=== PATIENT | male | born 1975 | race Caucasian/White ===

== ENCOUNTER 2019-01-29 07:11 | Emergency (ER) | payer OTHER ==
[2019-01-29 07:25] VITALS: BP 147/92; PULSE 80; RESP 18; TEMP 98.3
[2019-01-29] MEDS ORDERED: DIPH,PERTUS(ACELL)TETVAC-LF 0.5 ML VIAL IM ONE (07:41)
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
== END 2019-01-29 08:00 | disposition home or self-care (01) ==
LOC: EC 07:11
DX: K13.0 Diseases of lips (principal); Z23 Encounter for immunization; Y09 Assault by unspecified means; Y92.129 Unspecified place in nursing home as the place of occurrence of the external cause; Y99.0 Civilian activity done for income or pay
CPT/HCPCS: 90471; 90715; 99283

== ENCOUNTER → 2021-08-27 | Outpatient (CLI) | payer BC ==
--- NOTE | 2021-08-27 15:18 | XR ---
EXAMINATION TYPE: XR shoulder complete LT DATE OF EXAM: 08/27/2021 CLINICAL HISTORY: pain COMPARISON: NONE TECHNIQUE: Three views of the left shoulder are obtained. FINDINGS: There is no acute fracture/dislocation evident. The acromioclavicular and glenohumeral stephen int spaces appear within normal limits. The visualized ribs are intact and unremarkable. IMPRESSION: 1. There is no acute fracture or dislocation. ICD 10 NO FRACTURE, INITIAL EVALUATION
== END | disposition home or self-care (01) ==
LOC: RADXRYALE 14:25
PROVIDERS: ATTEND Physician Assistant
DX: M25.512 Pain in left shoulder (principal)

== ENCOUNTER 2021-12-22 20:37 | Emergency (ER) | payer MEDICAID, OTHER ==
[2021-12-22 20:45] VITALS: BP 177/104; PULSE 87; RESP 18; TEMP 99.2
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
--- NOTE | 2021-12-22 23:47 | XR ---
EXAMINATION TYPE: XR foot complete LT DATE OF EXAM: 12/22/2021 COMPARISON: NONE HISTORY: Possible foreign body. Pain. TECHNIQUE: 3 views FINDINGS: Metatarsals are intact. I see no fracture nor dislocation. There is no evidence of radiopaq ue foreign body. IMPRESSION: Negative exam. Small piece of wood is probably not visible on plain x-ray. Ultrasound parag ht be helpful.
--- NOTE | 2021-12-23 00:37 | US ---
EXAMINATION TYPE: US extremity nonvasc mass LT DATE OF EXAM: 12/23/2021 COMPARISON: NONE CLINICAL HISTORY: Foreign body left foot. Patient states he stepped on a piece of wood; patient is ex periencing pain at area. Area of concern at the left plantar surface was assessed. There appears to be a break in the skin-maximilian e surface at area of concern. No vascularity noted at area. IMPRESSION: There is hypoechoic area in the area of concern that could be area of small hematoma torrey uring 4 mm. No sharply marginated finding to suggest a wooden sliver.
[2021-12-23] MEDS ORDERED: CEPHALEXIN 500 MG CAP PO STA (00:43)
== END 2021-12-23 01:34 | disposition home or self-care (01) ==
LOC: EC 20:37
DX: S91.342A Puncture wound with foreign body, left foot, initial encounter (principal); E11.9 Type 2 diabetes mellitus without complications; I10 Essential (primary) hypertension; W22.8XXA Striking against or struck by other objects, initial encounter
CPT/HCPCS: 99284

== ENCOUNTER 2022-04-22 20:47 | Emergency (ER) | payer OTHER ==
[2022-04-22 21:04] VITALS: TEMP 98.1
[2022-04-22] MEDS ORDERED: DEXAMETHASONE SOD PHOSPHATE 10 MG/ML 1 ML VIAL IV STA (21:44)
[2022-04-22] MEDS ORDERED: SODIUM CHLORIDE 0.9% 1,000 ML IV STA (21:44)
[2022-04-22] MEDS ORDERED: METOCLOPRAMIDE 5 MG/ML 2 ML VIAL IVP STA (21:44)
[2022-04-22] MEDS ORDERED: diphenhydrAMINE 50 MG/ML 1 ML VIAL IVP STA (21:44)
[2022-04-22] MEDS ORDERED: KETOROLAC 15 MG/ML 1 ML VIAL IVP STA (21:44)
[2022-04-22 22:13] LABS: Basophils % (A) 0 %; Eosinophils # (A) 0.1 k/uL (0-0.7); Eosinophils % (A) 1 %; HCT 45.2 % (39.0-53.0); HGB 15.1 gm/dL (13.0-17.5); Lymphocytes # (A) 2.6 k/uL (1.0-4.8); Lymphocytes % (A) 35 %; MCH 28.6 pg (25.0-35.0); MCHC 33.4 g/dL (31.0-37.0); MCV 85.8 fL (80.0-100.0); Mean Platelet Volume 6.4; Monocytes # (A) 0.3 k/uL (0-1.0); Monocytes % (A) 4 %; Neutrophils # (A) 4.3 k/uL (1.3-7.7); Neutrophils % (A) 58 %; Platelet Count 268 k/uL (150-450); RBC 5.26 m/uL (4.30-5.90); RDW 13.1 % (11.5-15.5); WBC 7.4 k/uL (3.8-10.6)
[2022-04-22 22:22] LABS: ALT 26 U/L (4-49); AST 28 U/L (17-59); African American GFR (CKD) >90 (>60 ml/min/1.73 sqM); Albumin 4.3 g/dL (3.5-5.0); Alkaline Phosphatase 68 U/L (38-126); Anion Gap 5 mmol/L; Blood Urea Nitrogen 18 mg/dL (9-20); Calcium 9.6 mg/dL (8.4-10.2); Carbon Dioxide 28 mmol/L (22-30); Chloride 106 mmol/L (98-107); Glucose 159 mg/dL (74-99); Non-African American GFR(CKD) >90 (>60 ml/min/1.73 sqM); Potassium 4.1 mmol/L (3.5-5.1); Sodium 139 mmol/L (137-145); Total Bilirubin 0.4 mg/dL (0.2-1.3)
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
--- NOTE | 2022-04-22 22:45 | CT ---
EXAMINATION TYPE: CT brain wo con DATE OF EXAM: 04/22/2022 COMPARISON: None HISTORY: Headache and dizziness CT DLP: 1303.4 mGycm Automated exposure control for dose reduction was used. Images obtained of the brain with no contrast. Ventricles of normal size. There is no mass effect or midline shift. No sign of intracranial hemorrha ge. Calvarium is intact. Normal aeration of the mastoid sinuses. Skull base is intact. IMPRESSION: Negative unenhanced head CT scan
--- NOTE | 2022-04-22 23:12 | XR ---
EXAMINATION TYPE: XR chest 2V DATE OF EXAM: 04/22/2022 COMPARISON: NONE HISTORY: Short of breath TECHNIQUE: 2 views FINDINGS: Heart and mediastinum are normal. Lungs are clear. Diaphragm is normal. Bony thorax appears normal. IMPRESSION: Normal chest.
[2022-04-22] MEDS ORDERED: ONDANSETRON 4 MG ODT STARTER PACK 2 TAB BTL PO STA (23:33)
[2022-04-22 23:48] VITALS: BP 151/97; PULSE 82; RESP 14
== END 2022-04-22 23:50 | disposition home or self-care (01) ==
LOC: EC 20:47
DX: G43.909 Migraine, unspecified, not intractable, without status migrainosus (principal); R42 Dizziness and giddiness; E11.9 Type 2 diabetes mellitus without complications; I10 Essential (primary) hypertension; Z79.899 Other long term (current) drug therapy; Z20.822 Contact with and (suspected) exposure to COVID-19
CPT/HCPCS: 36415; 80053; 85025; 87502; 87635; 71046; 70450; 99284; 96374; 96375 ×3; 96361; J1200; J1100; J2765; J1885; S0119

== ENCOUNTER 2023-12-30 11:38 | Emergency (ER) | payer BC, OTHER ==
[2023-12-30 12:13] VITALS: RESP 18; TEMP 97.8
[2023-12-30] MEDS: AMOXIC-POT CLAV 875-125MG 1 EACH TAB PO STA (12:17)
[2023-12-30] MEDS: LIDOCAINE 1% INJ 10MG/ML (20 ML MDV) SQ ONE (12:17)
[2023-12-30] MEDS: KETOROLAC 15 MG/ML 1 ML VIAL IM STA (12:20)
--- NOTE | 2023-12-30 12:23 | ED ---
Animal Bite HPI - General Chief Complaint: Animal Bite Stated Complaint: Animal Bite Time Seen by Provider: 12/30/23 11:55 Source: patient, RN notes reviewed Mode of arrival: ambulatory Limitations: no limitations - History of Present Illness Initial Comments: This is a 48-year-old male who presents to the emergency department for a dog bite. Patient states that he was trying to break up a fight between his dogs, when his dog bit his left index finger. His dog is a Corgi. The dog's vaccines are up-to-date and the patient is up-to-date on his tetanus vaccine. He initially went to urgent care, but was advised to come to the emergency department for further evaluation. MD Complaint: animal bite - Related Data Home Medications Medication Instructions Recorded Confirmed Atorvastatin [Lipitor] 40 mg PO DAILY 04/22/22 04/22/22 Losartan [Cozaar] 25 mg PO DAILY 04/22/22 04/22/22 Semaglutide [Ozempic] 1 mg SQ MO 04/22/22 04/22/22 metFORMIN HCL [Glucophage] 1,000 mg PO BID 04/22/22 04/22/22 Previous Rx's Medication Instructions Recorded Ondansetron Odt [Zofran Odt] 4 mg PO Q8HR PRN #20 tab 04/22/22 SUMAtriptan succinate [Imitrex] 50 mg PO ONCE #20 tablet 04/22/22 Amoxic-Pot Clav 875-125Mg 1 tab PO Q12HR 7 Days #14 tab 12/30/23 [Augmentin 875-125] HYDROcodone/APAP 5-325MG [[place] 1 tab PO Q6HR PRN 3 Days #12 tab 12/30/23 5-325] Ibuprofen [Motrin] 800 mg PO Q8H PRN #30 tab 12/30/23 Allergies Allergy/AdvReac Type Severity Reaction Status Date / Time No Known Allergies Allergy Verified 12/30/23 11:49 Review of Systems ROS Statement: Those systems with pertinent positive or pertinent negative responses have been documented in the HPI. ROS Other: All systems not noted in ROS Statement are negative. 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 Absent: respiratory distress, wheezes, rales, rhonchi, stridor Cardiovascular Exam: Present: regular rate, normal rhythm, normal heart sounds. Absent: systolic murmur, diastolic murmur, rubs, gallop, clicks Extremities exam: Present: other (Amputation of the tip of the left index finger with active bleeding and visible bone.) Neurological exam: Present: alert, oriented X3, CN II-XII intact Psychiatric exam: Present: normal affect, normal mood Course Vital Signs 12/30/23 12/30/23 11:45 14:09 Temperature 97.8 F Pulse Rate 75 70 Respiratory 18 18 Rate Blood Pressure 178/105 146/88 O2 Sat by Pulse 98 97 Oximetry Procedures - Laceration Laceration #1 Consent Obtained: verbal consent Indication: laceration Site: other (left index finger) Size (cm): 2 Description: linear Depth: simple, single layer Anesthetic Used: lidocaine 1% Anesthesia Technique: nerve block Amount (mls): 3 Pre-repair: wound explored, irrigated extensively Type of Sutures: nylon Size of Sutures: 4-0 Number of Sutures: 3 Technique: simple, interrupted Laceration #2 Consent Obtained: verbal consent Indication: laceration Site: other (left index finger) Size (cm): 3 Description: linear Depth: simple, single layer Anesthetic Used: lidocaine 1% Anesthesia Technique: nerve block Amount (mls): 3 Pre-repair: wound explored, irrigated extensively Type of Sutures: nylon Size of Sutures: 4-0 Number of Sutures: 2 Technique: simple, interrupted - Nerve Block Consent Obtained: verbal consent Local Anesthetic Used: Lidocaine 1% Amount of anesthesia used: 4 Side: left Nerve Blocks: digital Procedure Successful: Yes Medical Decision Making - Medical Decision Making This is a 48 year old male who presents to the emergency department for a dog bite to the left index finger. Was pt. sent in by a medical professional or institution? @ -No Did you speak to anyone other than the patient for history? @ -No Did you review nursing and triage notes? @ -Yes, and I agree, it is accurate with regards to the patient's symptoms. Were old charts reviewed? @ -No Differential Diagnosis? @ -Not applicable EKG interpreted by me (3pts min.)? @ -Not obtained X-rays interpreted by me (1pt min.)? @ -X-ray of the left index finger obtained. My interpretation identifies a tuft fracture of the left index finger. CT interpreted by me (1pt min.)? @ -Not obtained U/S interpreted by me (1pt. min.)? @ -Not obtained What testing was considered but not performed? (CT, X-rays, U/S, labs)? Why? @ -None What meds were considered but not given? Why? @ -None Did you discuss the management of the patient with other professionals? @ -No Did you reconcile home meds? @ -No Was smoking cessation discussed for >3mins.? @ -No Was critical care preformed (if so, how long)? @ -No Were there social determinants of health that impacted care today? How? (Homelessness, low income, unemployed, alcoholism, drug addiction, transportation, low edu. Level, literacy, decrease access to med. care, correction, rehab)? @ -No Was there de-escalation of care discussed even if they declined? (Discuss DNR or withdrawal of care, Hospice)? @ -No What co-morbidities impacted this encounter? (DM, HTN, Smoking, COPD, CAD, Cancer, CVA, Hep., AIDS, mental health diagnosis, sleep apnea, morbid obesity)? @ -DM Was patient admitted / discharged? @ -Discharged. Patient's tetanus vaccine is up-to-date and his dog has had its rabies vaccine. X-ray of the left index finger obtained demonstrating a comminuted fracture involving the subungual tuft of the left second digit. There is also soft tissue amputation of the distal aspect of the left second digit at the ungual region. His wound was thoroughly cleansed he was given dose of Augmentin in the emergency department. He did have deeper lacerations to the anterior and posterior aspect of the finger just inferior to the amputation. Those lacerations were closed with sutures. Case management made the patient an appointment with Dr. Price, orthopedics for 01/01. Prescription for Augmentin and ibuprofen provided with dosing instructions reviewed. He is advised return in 7 to 10 days for suture removal. Patient discharged home in stable condition. Undiagnosed new problem with uncertain prognosis? @ -None Drug Therapy requiring intensive monitoring for toxicity (Heparin, Nitro, Insulin, Cardizem)? @ -None Were any procedures done? @ -Laceration repair with sutures and digital block Diagnosis/symptom? @ -Dog bite, partial finger amputation Acute, or Chronic, or Acute on Chronic? @ -Acute Uncomplicated (without systemic symptoms) or Complicated (systemic symptoms)? @ -Uncomplicated Side effects of treatment? @ -None Exacerbation, Progression, or Severe Exacerbation] @ -Not applicable Poses a threat to life or bodily function? @ -This will limit his use of the right hand for the mean time. Return precautions reviewed in depth, the patient is instructed to return to the emergency department with any new, worsening, or concerning symptoms. Patient verbalized understanding. This case was discussed in detail with the attending ED physician, Dr. Dooley. Presentation, findings, and treatment plan discussed in detail as well. - Radiology Data Radiology results: report reviewed, image reviewed Disposition Clinical Impression: Fingertip amputation, Dog bite Disposition: HOME SELF-CARE Instructions (If sedation given, give patient instructions): Animal Bite (ED), Care For Your Stitches (ED) Additional Instructions: Return to the emergency department with any new, worsening, or concerning symptoms and in 7-10 days for removal of the stitches. Take the antibiotic as prescribed for 7 days. Alternate with ibuprofen and Tylenol as needed for pain relief. Take the [place] sparingly when your pain is the most severe. Follow-up with orthopedics as scheduled on Tuesday at 8:30 AM. Prescriptions: Amoxic-Pot Clav 875-125Mg [Augmentin 875-125] 1 tab PO Q12HR 7 Days #14 tab Ibuprofen [Motrin] 800 mg PO Q8H PRN #30 tab PRN Reason: Pain HYDROcodone/APAP 5-325MG [[place] 5-325] 1 tab PO Q6HR PRN 3 Days #12 tab PRN Reason: Pain Is patient prescribed a controlled substance at d/c from ED?: Yes When asked, does pt state using other controlled substances?: No If prescribed controlled substance>3 days was MAPS reviewed?: Prescribed <3 Days Referrals: Hernesto Price DO [Doctor of Osteopathic Medicine] - 01/02/24 8:30 am Lux Armando DO [Primary Care Provider] - () Time of Disposition: 14:31
[2023-12-30] MEDS: KETOROLAC 15 MG/ML 1 ML VIAL IVP STA (12:28)
--- NOTE | 2023-12-30 12:48 | XR ---
EXAMINATION TYPE: XR finger LT DATE OF EXAM: 12/30/2023 CLINICAL HISTORY: pain TECHNIQUE: 3 views of the left second digit are submitted. COMPARISON: None FINDINGS: There is comminuted fracture involving the subungual tuft of the left second digit.There is soft tissue amputation of the distal aspect of the left second digit at the ungual region. No additi onal fractures or soft tissue injury seen at this time. IMPRESSION: As above
[2023-12-30] MEDS: MORPHINE SULFATE 4 MG/ML SYRINGE IM STA (14:11)
[2023-12-30 14:15] VITALS: BP 146/88; PULSE 70
[2023-12-30] MEDS: ACET/COD 300 MG/30 MG STARTER PACK 6 TAB BTL PO STA (14:43)
[2023-12-30] MEDS: IBUPROFEN 600 MG STARTER PACK 4 TAB BTL PO STA (14:44)
== END 2023-12-30 14:50 | disposition home or self-care (01) ==
LOC: EC 11:38
DX: S61.211A Laceration without foreign body of left index finger without damage to nail, initial encounter (principal); S61.251A Open bite of left index finger without damage to nail, initial encounter; E11.9 Type 2 diabetes mellitus without complications; W54.0XXA Bitten by dog, initial encounter
CPT/HCPCS: 73140; 12002; 99284; 96372 ×2; J2270; J2001; J1885